=== PATIENT | female | born 1980 | race American Indian/Alaskan Native ===

== ENCOUNTER 2017-05-10 20:44 | Emergency (ER) | payer OTHER ==
[~2017-05-10] VITALS: Ht 170.2 cm; Wt 125.6 kg
== END 2017-05-10 21:45 | disposition home or self-care (01) ==
LOC: ED 20:44
DX: M25.522 Pain in left elbow (principal); J45.909 Unspecified asthma, uncomplicated; F17.200 Nicotine dependence, unspecified, uncomplicated; Z88.1 Allergy status to other antibiotic agents
CPT/HCPCS: 73080; 99283

== ENCOUNTER 2017-05-12 18:10 | Emergency (ER) | payer OTHER ==
[~2017-05-12] VITALS: Ht 170.2 cm; Wt 125.6 kg
[2017-05-12] MEDS ORDERED: NORCO 5-325 TA1 EACH PO (18:56)
== END 2017-05-12 19:12 | disposition home or self-care (01) ==
LOC: ED 18:10
DX: S40.011A Contusion of right shoulder, initial encounter (principal); J45.909 Unspecified asthma, uncomplicated; F17.200 Nicotine dependence, unspecified, uncomplicated; Z88.1 Allergy status to other antibiotic agents; V49.9XXA Car occupant (driver) (passenger) injured in unspecified traffic accident, initial encounter
CPT/HCPCS: 73030; 99283

== ENCOUNTER 2019-12-28 15:14 | Emergency (ER) | payer OTHER ==
[~2019-12-28] VITALS: Ht 170.2 cm; Wt 122.5 kg
--- OUTSIDE RECORDS SUMMARY | ~2019-12-28 | XMS | Clinical Summary ---
Demographics + + + | Address | [address] | | | [place] [address] | + + + | Home Phone | | + + + | Preferred Language | Unknown | + + + | Marital Status | Single | + + + | Anabaptist Affiliation | 1041 | + + + | Race | Unknown | + + + | Ethnic Group | Unknown | + + + Author + + + | Author | [facility] | | | and Roman | + + + | Organization | [facility] | | | and [...] Team Providers + +------+ + | Care Cash Controller Name | Role | Phone | + +------+ + | No, Physician | PCP | Unavailable | + +------+ + Allergies No Known Allergies Medications + + + +---------+------+------+-------+ | Medication | Sig | Dispensed | Refills | Star | End | Statu | | | | | | t | Date | s | | | | | | Date | | | + + + +---------+------+------+-------+ | triamcinolone | Apply two times | 453.6 g | 11 | 11/0 | | Activ | | (KENALOG) 0.1% | daily to effected | | | 5/20 | | e | | creamIndications: | areas with rash. | | | 19 | | | | Dermatitis, | Best applied to damp | | | | | | | unspecified | skin. Avoid the | | | | | | | | face, underarms and | | | | | | | | groin areas. | | | | | | + + + +---------+------+------+-------+ | Skin Protectants, | Apply two times | 454 g | 11 | 11/0 | | Activ | | Misc. (MINERIN) | daily to damp skin | | | 5/20 | | e | | CREAIndications: | of entire body | | | 19 | | | | Dermatitis, | surface. | | | | | | | unspecified | | | | | | | + + + +---------+------+------+-------+ | hydrocortisone | Apply two times | 60 g | 11 | 11/0 | | Activ | | butyrate (LOCOID) | daily to effected | | | 5/20 | | e | | 0.1 % | areas of face with | | | 19 | | | | CREAIndications: | rash. Best applied | | | | | | | Dermatitis, | to damp skin. | | | | | | | unspecified | | | | | | | + + + +---------+------+------+-------+ | cetirizine | Take 1 tablet by | 30 | 2 | 11/0 | | Activ | | (ZYRTEC) 10 mg | mouth Daily. | tablet | | 5/20 | | e | | tabletIndications: | | | | 19 | | | | Dermatitis, | | | | | | | | unspecified | | | | | | | + + + +---------+------+------+-------+ | clindamycin | Apply to a clean dry | 60 mL | 0 | 02/2 | | Activ | | (CLEOCIN T) 1 % | face two times | | | 6/20 | | e | | lotionIndications: | daily. | | | 20 | | | | Acne vulgaris | | | | | | | + + + +---------+------+------+-------+ | doxycycline | Take 1 tablet by | 60 | 5 | 02/2 | | Activ | | (ADOXA) 100 MG | mouth 2 times daily. | tablet | | 6/20 | | e | | tabletIndications: | | | | 20 | | | | Acne vulgaris | | | | | | | + + + +---------+------+------+-------+ Active Problems No known active problems Social History + +-------+ +--------+------+ | Tobacco [...] on file | | + + + + + + + | Job Start Date | Occupation | Industry | + + + + | Not on file | Not on file | Not on file | + + + + + + + + | Travel History | Travel Start | Travel End | + + + + + + | No recent travel history available. | + + Last Filed Vital Signs + + + [...] + + + + | Height | 170.2 cm (5' 7") | 05/25/2019 10:57 AM | | | | | PST | | + + + + + | Body Mass Index | 45.58 | 05/25/2019 10:57 AM | | | | | PST | | + + + + + Plan of Treatment +--------+---------+ + + + | Date | Type | Specialty | Care Team | Description | +--------+---------+ + + + | 01/10/ Office | Dermatology | Joanie Barrera | | | 2020 | Visit | | [address] | | | | | | [address] [address] | | | | | | [place] [address] | | | | | | [phone] | | | | | | | | +--------+---------+ + + + + + + + + | Health Maintenance | Due Date | Last Done | Comments | + + + + + | Vaccine: | | 01/07/2005 | | | Dtap/Tdap/Td (1 - | 1 | | | | Tdap) | | | | + + + + + | Cervical Cancer | | | | | Screening (Pap) | 0 | | | + + + + + | Vaccine: Influenza | Completed | 04/08/2019 | | + + + + + Results Not on filefrom Last 3 Months Additional Health Concerns + + + + | Infection | Noted Time | Resolved Time | + + + + | Methicillin-resistant Staphylococcus aureus | 05/27/2019 1:29 PM | | | | PST | | + + + + Insurance + +--------+ +--------+ +---------+--------+ | Payer | Benefi | Subscriber | Effect | Phone | Address | Type | | | t Plan | ID | rk | | | | | | / | | Dates | | | | | | Group | | | | | | + +--------+ +--------+ +---------+--------+ | [place]ID [place] | MEDICA | [id number] | 07/21/19 | [phone] | | Medica | | | [place] | | 19-Pre | 2 | | id | | | PLUS | | sent | | | | + +--------+ +--------+ +---------+--------+ | [facility] | IHS | [id number] | | | | Indemn | | SERVICE | YELLOW | | 019-Pr | | | ity | | | HAWK | | esent | | | | + +--------+ +--------+ +---------+--------+ + +--------+ +--------+ + + | Guarantor Name | Accoun | Relation to | Date | Phone | Billing Address | | | t Type | Patient | of | | | | | | | | | | + +--------+ +--------+ + + | Bertha Viveros D | Person | Self | [birth year] | [address] | | | al/Fam | | 1980 | [phone] | [place] [address] | | | [place] | | | 4 (Home) | | + +--------+ +--------+ + + Advance Directives + + + + + | Type | Date Recorded | Patient | Explanation | | | | Slitting Machine Feeder | | + + + + + | Power of | | | | | Timers Inspector | | | | + + + + + | Advance | | | | | Directive | | | | + + + + +
--- OUTSIDE RECORDS SUMMARY | ~2019-12-28 | XMS | Encounter Summary ---
Demographics + + + | Address | [address] | | | [place] [address] | + + + | Home Phone | | + + + | Preferred Language | Unknown | + + + | Marital Status | Single | + + + | Shinto Affiliation | 1041 | + + + | Race | Unknown | + + + | Ethnic Group | Unknown | + + + Author + + + | Author | [facility] | | | and Roman | + + + | Organization | [facility] | | | and [...] Team Providers + +------+ + | Care Hydraulic Oil Tool Operator Name | Role | Phone | + +------+ + | No, Physician | PCP | Unavailable | + +------+ + Reason for Visit +---------+ + | Reason | Comments | +---------+ + | Results | | +---------+ + Encounter Details +--------+ + + + + | Date | Type | Department | Care Team | Description | +--------+ + + + + | 05/28/ | Telephone | [facility] | Emily Crane | Results | | 2019 | | PLASTIC SURGERY AND | [address] | | | | | DERMATOLOGY [address] | [address] | | | | | [place] | [place] [address] | | | | | [place], [place] | [phone] | | | | | [address] | | | | | | [phone] | | | +--------+ + + + + Social History + +-------+ +--------+------+ | Tobacco Use | Types | Packs/Day | Years | Date | | | | | Used | | + +-------+ +--------+------+ | Never Assessed | | | | | + +-------+ +--------+------+ + + + | Sex Assigned at [...] recent travel history available. | + + documented as of this encounter Plan of Treatment +--------+---------+ + + + | Date | Type | Specialty | Care Team | Description | +--------+---------+ + + + | 01/10/ | Office | Dermatology | Joanie Barrera | | | 2020 | Visit | | [address] | | | | | | [address] | | | | | | [place] [address] | | | | | | [phone] | | | | | | | | +--------+---------+ + + + documented as of this encounter Visit Diagnoses Not on filedocumented in this encounter Additional Health Concerns + + + + | Infection | Noted Time | Resolved Time | + + + + | Methicillin-resistant Staphylococcus aureus | 05/27/2019 1:29 PM | | | | PST | | + + + + documented as of this encounter"
--- OUTSIDE RECORDS SUMMARY | ~2019-12-28 | XMS | Encounter Summary ---
Demographics + + + | Address | [address] | | | [place] [address] | + + + | Home Phone | | + + + | Preferred Language | Unknown | + + + | Marital Status | Single | + + + | Caodaism Affiliation | 1041 | + + + | Race | Unknown | + + + | Ethnic Group | Unknown | + + + Author + + + | Author | [facility] | | | and Roman | + + + | Organization | [facility] | | | and [...] Team Providers + +------+ + | Care Maintenance Clerk Name | Role | Phone | + [...] | | | | | dermatitis | CREEK | Dermatology | | | | | | HEALTH | [address] [place] [address] | | | | | | [place] | POINT | | | | | | [address] | [place], [place] | | | | | | [place] | [address] | | | | | | WAY | Phone: | | | | | | [place], | [phone] | | | | | | [place] | Fax: | | | | | | [address] | [phone] | | | | | | Phone: | | | | | | | [phone] | | | | | | | Fax: | | | | | | | [phone] | | +--------+--------+ + + + + Encounter Details +--------+---------+ + + + | Date | Type | Department | Care Team | Description | +--------+---------+ + + + | 09/15/ | Office | [facility] | Emily Crane | Acne vulgaris | | 2019 | Visit | PLASTIC SURGERY AND | [address] | (Primary Dx); | | | | DERMATOLOGY [address] | [address] | Dermatitis, | | | | [address] | [place] [address] | unspecified | | | | [place], [place] | [phone] | | | | | [address] | | | | | | [phone] | | | +--------+---------+ + + + [...] encounter Patient Instructions Patient Instructions Maggy Turner, Sawyer Cork Slabs - 09/15/2019 2:45 PM PSTFormattin g of this note might be different from [...] a.m. to 4 p.m. Date Last Reviewed: 07/21/201619990156-4774 [employer]. [address] [place] [address]. All [facility] ts reserved. This information is not intended as a substitute for professional medical care. Always follow your healthcare professional's instructions. documented in this encounter Progress Notes Emily Crane, ANTONIO - 09/15/2019 2:45 PM PST Subjective Patient [...] dermatitis versus atopic dermatitis with impetiginous areas I, Maggy Turner CMA, am scribing for, and in the presence of Emily ANDERSON. I, RICHARD Nelson DCNP, personally performed the services described in this documen tation, as scribed by Maggy Turner CMA, in my presence, and it is both accurate and com plete. documented i n this encounter Plan of Treatment +--------+---------+ + + + | Date | Type | Specialty | Care Team | Description | +--------+---------+ + + + | 01/10/ | Office | Dermatology | Joanie Barrera | | | 2019 | Visit | | [address] | | | | | | [address] | | | | | | [place] [address] | | | | | | [phone] | | | | | | | | +--------+---------+ + + + documented as of this encounter Visit Diagnoses + [...]
--- OUTSIDE RECORDS SUMMARY | ~2019-12-28 | XMS | Encounter Summary ---
Demographics + + + | Address | [address] | | | [place] [address] | + + + | Home Phone | | + + + | Preferred Language | Unknown | + + + | Marital Status | Single | + + + | Mosque Affiliation | 1041 | + + + | Race | Unknown | + + + | Ethnic Group | Unknown | + + + Author + + + | Author | [facility] | | | and Roman | + + + | Organization | [facility] | | | [...] Team Providers + +------+ + | Care Dynamiter Name | Role | Phone | + +------+ + PCP | Unavailable | + +------+ + Encounter Details +--------+ + + + + | Date | Type | Department | Care Team | Description | +--------+ + + + + | 11/11/ | Hospital | [facility] | Ollie Akbar MD | | | 1996 | Encounter | MED CTR GENERIC OP | [address] | | | | | CONV DEPT [address] | [address] [place] | | | | | [place], | [address] | | | | | [place] [address] | | | | | | [phone] | | | +--------+ + + + [...] 2020 | Visit | | [address]IO [address] | | | | | | [address] | | | | | | [place] [address] | | | | | | [phone] | | | | | | | | +--------+---------+ + + + documented as of this encounter Visit Diagnoses Not on filedocumented in this encounter"
--- OUTSIDE RECORDS SUMMARY | ~2019-12-28 | XMS | Encounter Summary ---
Demographics + + + | Address | [address] | | | [place] [address] | + + + | Home Phone | | + + + | Preferred Language | Unknown | + + + | Marital Status | Single | + + + | Advent Affiliation | 1041 | + + + | Race | Unknown | + + + | Ethnic Group | Unknown | + + + Author + + + | Author | [facility] | | | and Roman | + + + | Organization | [facility] | | | and [...] Team Providers + +------+ + | Care Surgical Appliances Salesperson Name | Role | Phone | + +------+ + | No, Physician | PCP | Unavailable | + +------+ + Reason for Visit +---------+ + | Reason | Comments | +---------+ + | Results | | +---------+ + Encounter Details +--------+ + + + + | Date | Type | Department | Care Team | Description | +--------+ + + + + | 06/01/ | Telephone | [facility] | Emily Crane | Results | | 2019 | | PLASTIC SURGERY AND | [address] | | | | | DERMATOLOGY [address] | [address] | | | | | [place] [address] | [place] [address] | | | | | [place], [place] | [phone] | | | | | [address] | | | | | | [phone] | | | +--------+ + + + [...] | | | | | | [place] [address] | | | | | | [phone] | | | | | | | [...]
--- OUTSIDE RECORDS SUMMARY | ~2019-12-28 | XMS | Encounter Summary ---
Demographics + + + | Address | [address] | | | [place] [address] | + + + | Home Phone | | + + + | Preferred Language | Unknown | + + + | Marital Status | Single | + + + | Yazidism Affiliation | 1041 | + + + | Race | Unknown | + + + | Ethnic Group | Unknown | + + + Author + + + | Author | [facility] | | | and Roman | + + + | Organization | [facility] | | | and [...] Team Providers + +------+ + | Care Paving Plant Operator Name | Role | Phone | + +------+ + | No, Physician | PCP | Unavailable | + +------+ + Encounter Details +--------+ + + + + | Date | Type | Department | Care Team | Description | +--------+ + + + + | 06/02/ | Telephone | [facility] | Emily Crane | | | 2018 | | PLASTIC SURGERY AND | [address] | | | | | DERMATOLOGY [address] | [address] | | | | | [address] | [place] [address] | | | | | [place], [place] | [phone] | | | | | [address] | | | | | | [phone] | | | +--------+ + + + [...] | | 2019 | Visit | | AN[address]IO [address]an [address] | | | | | | [address] | | | | | | [place] [address] | | | | | | [phone] | | | | | | | [...]
--- OUTSIDE RECORDS SUMMARY | ~2019-12-28 | XMS | Encounter Summary ---
Demographics + + + | Address | [address] | | | [place] [address] | + + + | Home Phone | | + + + | Preferred Language | Unknown | + + + | Marital Status | Single | + + + | Amish Affiliation | 1041 | + + + | Race | Unknown | + + + | Ethnic Group | Unknown | + + + Author + + + | Author | [facility] | | | and Roman | + + + | Organization | [facility] | | | [...] Team Providers + +------+ + | Care Watch Adjuster Name | Role | Phone | + +------+ + PCP | Unavailable | + +------+ + Encounter Details +--------+ + + + + | Date | Type | Department | Care Team | Description | +--------+ + + + + | 11/11/ | Hospital | [facility] | Ollie Akbar MD | | | 1996 | Encounter | MED CTR GENERIC OP | [address] | | | | | CONV DEPT [address] | [address] | | | | | [place], | [address] | | | | | [place] [address] | | | | | | [phone] | | | +--------+ + + + [...] 2020 | Visit | | ANTONIO [address]an [address] | | | | | | [address] | | | | | | [place] [address] | | | | | | [phone] | | | | | | | | +--------+---------+ + + + documented as of this encounter Visit Diagnoses Not on filedocumented in this encounter"
--- OUTSIDE RECORDS SUMMARY | ~2019-12-28 | XMS | Encounter Summary ---
Demographics + + + | Address | [address] | | | [place] [address] | + + + | Home Phone | | + + + | Preferred Language | Unknown | + + + | Marital Status | Single | + + + | Jew Affiliation | 1041 | + + + | Race | Unknown | + + + | Ethnic Group | Unknown | + + + Author + + + | Author | [facility] | | | and Roman | + + + | Organization | [facility] | | | [...] Providers + +------+ + | Care Surgical Garment Fitter Name | Role | Phone | + [...] + + | 06/01/ | Telephone | [facility] | Emily Crane | Results | | 2019 | | PLASTIC SURGERY AND | [address] | | | | | DERMATOLOGY [address] | [place] [address] | | | | | [place] [address] | [place] [address] | | | | | [place], [place] | [phone] | | | | | [address] | | | | | | [phone] | | | +--------+ + + + [...] | | | | | | [place] [address] | | | | | | [phone] | | | | | | | [...]
--- OUTSIDE RECORDS SUMMARY | ~2019-12-28 | XMS | Encounter Summary ---
Demographics + + + | Address | [address] | | | [place] [address] | + + + | Home Phone | | + + + | Preferred Language | Unknown | + + + | Marital Status | Single | + + + | Nondenominational Affiliation | 1041 | + + + [...] Team Providers + +------+ + | Care Typist Name | Role | Phone | + [...] + + | 05/28/ | Telephone | [facility] | Emily Crane | Results | | 2019 | | PLASTIC SURGERY AND | [address] | | | | | DERMATOLOGY [address] | [address] | | | | | [place] | [place] [address] | | | | | [place], [place] | [phone] | | | | | [address] | | | | | | [phone] | | | +--------+ + + + [...] | | | | | | [place] [address] | | | | | | [phone] | | | | | | | [...]
--- OUTSIDE RECORDS SUMMARY | ~2019-12-28 | XMS | Clinical Summary ---
Demographics + + + | Address | [address] | | | [place] [address] | + + + | Home Phone | | + + + | Preferred Language | Unknown | + + + | Marital Status | Single | + + + | Christian Affiliation | 1041 | + + + | Race | Unknown | + + + | Ethnic Group | Unknown | + + + Author + + + | Author | [facility] | | | and Roman | + + + | Organization | [facility] | | | and [...] Team Providers + +------+ + | Care Running Rigger Name | Role | Phone | + [...] | | | | | [place] [address] | | | | | | [phone] | | | | | | | [...] +---------+--------+ | MEDICAID [place] | MEDICA | [id number] | 07/21/19 | [phone] | | Medica | | | [place] | | 19-Pre | 2 | | id | | | PLUS | | sent | | | | + +--------+ +--------+ +---------+--------+ | [facility] | IHS | [id number] | | | | Indemn | | [...] Person | Self | [birth year] | | [address] | | | al/Fam | | 1980 | [phone] | [place] [address] | | | [place] | | | 4 (Home) | | + +--------+ +--------+ + + Advance Directives + + + + + | Type | Date Recorded | Patient | Explanation | | | | Vessel Builder | | + + + + + | Power of | | | | | Power Generation Engineer | | | | + + + + + | Advance | | | | | Directive | | | | + + + + +
--- OUTSIDE RECORDS SUMMARY | ~2019-12-28 | XMS | Encounter Summary ---
Demographics + + + | Address | [address] | | | [place] [address] | + + + | Home Phone | | + + + | Preferred Language | Unknown | + + + | Marital Status | Single | + + + | Rastafari Affiliation | 1041 | + + + | Race | Unknown | + + + | Ethnic Group | Unknown | + + + Author + + + | Author | [facility] | | | and Roman | + + + | Organization | [facility] | | | [...] Team Providers + +------+ + | Care Practicing Dermatologist Name | Role | Phone | + [...] | | | | | dermatitis | [facility] | Dermatology | | | | | | HEALTH | [address] [place] [address] | | | | | | [place] | POINT | | | | | | [address] | [place], [place] | | | | | | [place] | [address] | | | | | | WAY | Phone: | | | | | | [place], | [phone] | | | | | | [place] | Fax: | | | | | | [address] | [phone] | | | | | | Phone: | | | | | | | [phone] | | | | | | | Fax: | | | | | | | [phone] | | +--------+--------+ + + + + Encounter Details +--------+---------+ + + + | Date | Type | Department | Care Team | Description | +--------+---------+ + + + | 09/15/ | Office | [facility] | Emily Crane | Acne vulgaris | | 2019 | Visit | PLASTIC SURGERY AND | [address] | (Primary Dx); | | | | DERMATOLOGY [address] | [address] | Dermatitis, | | | | [address] | [place] [address] | unspecified | | | | [place], [place] | [phone] | | | | | [address] | | | | | | [phone] | | | +--------+---------+ + + + [...] encounter Patient Instructions Patient Instructions Maggy Turner, Flower Grader - 09/15/2019 2:45 PM PSTFormattin g of [...] a.m. to 4 p.m. Date Last Reviewed: 07/21/[id number] [employer]. [address] [place] [address]. All [facility] ts reserved. This information is not intended [...] [address] | | | | | | [place] [address] | | | | | | [phone] | | | | | | | [...]
--- OUTSIDE RECORDS SUMMARY | ~2019-12-28 | XMS | Encounter Summary ---
Demographics + + + | Address | [address] | | | [place] [address] | + + + | Home Phone | | + + + | Preferred Language | Unknown | + + + | Marital Status | Single | + + + | Shinto Affiliation | 1041 | + + + | Race | Unknown | + + + | Ethnic Group | Unknown | + + + Author + + + | Author | [facility] | | | and Roman | + + + | Organization | [facility] | | | [...] Team Providers + +------+ + | Care Media Technician Name | Role | Phone | + +------+ + | No, Physician | PCP | Unavailable | + +------+ + Reason for Visit +--------+ + | Reason | Comments | +--------+ + | Other | | +--------+ + Evaluate & Treat (Routine) +--------+--------+ + + + + | Status | Reason | Specialty | Diagnoses / | Referred By | Referred To | | | | | Procedures | Contact | Contact | +--------+--------+ + + + + | Closed | | Dermatology | Diagnoses | [facility] | [facility] | | | | | Dermatitis | [facility] | Dermatology | | | | | | HEALTH | [address] | | | | | | CENTER | POINT | | | | | | [address] | [place], [place] | | | | | | [place] | [address] | | | | | | WAY | Phone: | | | | | | [place], | [phone] | | | | | | [place] | Fax: | | | | | | [address] | [phone] | | | | | | Phone: | | | | | | | [phone] | | | | | | | Fax: | | | | | | | [phone] | | +--------+--------+ + + + + Encounter Details +--------+---------+ + + + | Date | Type | Department | Care Team | Description | +--------+---------+ + + + | 05/25/ | Office | [facility] | Emily Crane | Dermatitis, | | 2019 | Visit | PLASTIC SURGERY AND | [address] | unspecified (Primary | | | | DERMATOLOGY [address] | [address] | Dx) | | | | [address] | [place] [address] | | | | | [place], [place] | [phone] | | | | | [address] | | | | | | [phone] | | | +--------+---------+ + + + [...] + + + + | Weight | 117.9 kg (260 lb) | 05/25/2019 10:57 AM | | | | | PST | | + + + + + | Height | 170.2 cm (5' 7") | 05/25/2019 10:57 AM | | | | | PST | | + + + + + | Body Mass Index | 40.72 | 05/25/2019 10:57 AM | | | | | PST | | + + + + + documented in this encounter Patient Instructions Patient Instructions Teresita Olivares Hr Payroll Coordinator - 05/25/2019 11:15 AM PSTAryarier Annabel re: Soap: Dove sensitive skin Lotion:(Aveeno, Vanicream, cetaphil or cerave) as long as no color or fragrance. Best appli ed to WET skin. If second layer is necessary (Vaseline petroleum jelly) or the like Itch: 1st generation antihistamine (atarax or Benadryl) as needed for breakthrough itch. 2nd generation antihistamine: (Cetirizine or loratadine) every night Avoid possible contact irritants: Change due to possible contact irritants: No color or fragrance Laundry Detergent: Free and Gentle (ALL/Tide) Fabric Softener: Free and Gentle (Downy) Dryer Sheets: Free and Gentle (Bounce) documented in this encounter Progress Notes Emily Crane Patricia, ANTONIO - 05/25/2019 11:15 AM PST Subjective Patient ID: Bertha Viveros is a 38 y.o. female. New patient is here today for a rash located on her face,neck and back it has been ongoing since November. The rash started while she was incarcerated patient feels it was due to unclean s urroundings. She states that there could have been a lot of triggering factors. She states t hat the rash is itchy and it hurley. She has tried treatments with prescribed medications siomara t she is unsure the names of. Overall her rash has gotten worse and has not seen any improve ments. The following elements of the patient's history were reviewed and updated as appropriate. T hey are available elsewhere in the patient record. allergies, current medications, past fam clementina history, past medical history, past social history, past surgical history and problem li st Review of Systems Constitutional: Negative. Skin: Negative. skin All other systems reviewed and are negative. Objective Ht 1.702 m (5' 7") | Wt 117.9 kg (260 lb) | BMI 40.72 kg/m Physical Exam Constitutional: She is oriented to person, place, and time. She appears well-developed and well-nourished. Eyes: Pupils are equal, round, and reactive to light. Neurological: She is alert and oriented to person, place, and time. Skin: Skin is warm and dry. Lichenified erythematous vesicular scaling dermatitis with multiple areas of excoriation lo cated on the face, posterior neck and mid back. Widespread dry, non inflamed, intact skin. Psychiatric: Her behavior is normal. Assessment /Plan Assessment Dermatitis Unspecified versus contact dermatitis versus atopic dermatitis with i mpetiginous areas: Patient was advised to change her barrier care and use medications prescr ibed. She will follow up in 8 weeks. Bertha was seen today for other. Diagnoses and all orders for this visit: Dermatitis, unspecified Comments: contact dermatitis versus atopic dermatitis with impetiginous areas Orders: - triamcinolone (KENALOG) 0.1% cream; Apply two times daily to effected areas with rash . Best applied to damp skin. Avoid the face, underarms and groin areas. - Skin Protectants, Misc. (MINERIN) CREA; Apply two times daily to damp skin of entire body surface. - hydrocortisone butyrate (LOCOID) 0.1 % CREA; Apply two times daily to effected areas of face with rash. Best applied to damp skin. - doxycycline (ADOXA) 100 MG tablet; Take 1 tablet by mouth 2 times daily. - Culture, Wound, Superficial - cetirizine (ZYRTEC) 10 mg tablet; Take 1 tablet by mouth Daily. I Teresita Olivares CMA am scribing in the presence of; Emily ANDERSON. I, RICHARD Nelson, MNOICA, personally performed the services described in this documen tation, as scribed by Teresita Olivares CMA, in my presence, and it is both accurate and complete . documented jena juarez this encounter Plan of Treatment +--------+---------+ + + + | Date | Type | Specialty | Care Team | Description | +--------+---------+ + + + | 01/10/ | Office | Dermatology | [facility] | | | 2019 | Visit | | ANTONIO [address] | | | | | | [address] | | | | | | [place] [address] | | | | | | [phone] | | | | | | | | +--------+---------+ + + + documented as of this encounter Procedures + +--------+ + + + | Procedure Name | Priori | Date/Time | Associated Diagnosis | Comments | | | ty | | | | + +--------+ + + + | CULTURE, WOUND, | Routin | 05/25/2019 | Dermatitis, | Results for this | | SUPERFICIAL | e | 11:13 AM | unspecified | procedure are in the | | | | PST | | results section. | + +--------+ + + + | PATHOLOGY - EXTERNAL | | 03/29/2019 | | Results for this | | SCAN | | 12:00 AM | | procedure are in the | | | | PDT | | results section. | + +--------+ + + + documented in this encounter Results Culture, Wound, Superficial (05/25/2019 11:13 AM PST) + + + + + + | Component | Value | Ref Range | Performed | Pathologist | | | | | At | Signature | + + + + + + | RESULT | 1+METHICILLIN RESISTANT | | REFERENCE | | | | S[facility] (MRSA) (A) | | LAB | | | | (A) | | [facility] | | | | | | LABORATORY | | + + + + + + + + | Specimen | + + | Body Fluid - Entire | | skin (body | | structure) | + + + + +--------+ + | Organism | Antibiotic | Method | Susceptibility | + + +--------+ + | Staphylococcus | Clindamycin | CHRISTINE | SUSCEPTIBLE: | | aureus,Methicillin | | | Sensitive | | resistant (MRSA) | | | | + + +--------+ + | Staphylococcus | Erythromycin | CHRISTINE | RESISTANT: | | aureus,Methicillin | | | Resistant | | resistant (MRSA) | | | | + + +--------+ + | Staphylococcus | Gentamicin | CHRISTINE | SUSCEPTIBLE: | | aureus,Methicillin | | | Sensitive | | resistant (MRSA) | | | | + + +--------+ + | Staphylococcus | Levofloxacin | CHRISTINE | RESISTANT: | | aureus,Methicillin | | | Resistant | | resistant (MRSA) | | | | + + +--------+ + | Staphylococcus | Moxifloxacin | CHRISTINE | INTERMEDIATE: | | aureus,Methicillin | | | Intermediate | | resistant (MRSA) | | | | + + +--------+ + | Staphylococcus | Oxacillin | CHRISTINE | RESISTANT: | | aureus,Methicillin | | | Resistant | | resistant (MRSA) | | | | + + +--------+ + | Staphylococcus | Tetracycline | CHRISTINE | SUSCEPTIBLE: | | aureus,Methicillin | | | Sensitive | | resistant (MRSA) | | | | + + +--------+ + | Staphylococcus | Trimethoprim + | CHRISTINE | SUSCEPTIBLE: | | aureus,Methicillin | Sulfamethoxazole | | Sensitive | | resistant (MRSA) | | | | + + +--------+ + | Staphylococcus | Vancomycin | CHRISTINE | SUSCEPTIBLE: | | aureus,Methicillin | | | Sensitive | | resistant (MRSA) | | | | + + +--------+ + +---+ + | | Comment: Testing | | | performed at [facility], | | | [address] | | | [place], [place] | | | [address] | +---+ + + + + + + | Performing | Address | City/State/Zipcode | Phone Number | | Organization | | | | + + + + + | REFERENCE LAB | [address] | [place] | [phone] | | [facility] | Bl[address] | [address] | | | LABORATORY | | | | + + + + + | REFERENCE LAB | [address] | [place] | | | [facility] | Blvd[address] | [address] | | | LABORATORY | | | | + + + + + PATHOLOGY - EXTERNAL SCAN (03/29/2019 12:00 AM PDT) + + + | Narrative | Performed At | + + + | Ordered by an | | | unspecified provider. | | + + + documented in this encounter Visit Diagnoses + + | Diagnosis | + + | Dermatitis, unspecified - Primary | + + documented in this encounter
--- OUTSIDE RECORDS SUMMARY | ~2019-12-28 | XMS | Encounter Summary ---
Demographics + + + | Address | [address] | | | [place] [address] | + + + | Home Phone | | + + + | Preferred Language | Unknown | + + + | Marital Status | Single | + + + | Mosque Affiliation | 1041 | + + + | Race | Unknown | + + + | Ethnic Group | Unknown | + + + Author + + + | Author | [facility] | | | and Roman | + + + | Organization | [facility] | | [...] Team Providers + +------+ + | Care Instructor Decorating Name | Role | Phone | + +------+ + | No, Physician | PCP | Unavailable | + +------+ + Encounter Details +--------+ + + + + | Date | Type | Department | Care Team | Description | +--------+ + + + + | 06/02/ | Telephone | [facility] | Emily Crane | | | 2018 | | PLASTIC SURGERY AND | [address]TONIO [address] | | | | | DERMATOLOGY [address] | [address] | | | | | [address] | [place] [address] | | | | | [place], [place] | [phone] | | | | | [address] | | | | | | [phone] | | | +--------+ + + + [...] 2019 | Visit | | ANTONIO [address]an [address] | | | | | | [address] | | | | | | [place] [address] | | | | | | [phone] | | | | | | | [...]
--- OUTSIDE RECORDS SUMMARY | ~2019-12-28 | XMS | Encounter Summary ---
Demographics + + + | Address | [address] | | | [place] [address] | + + + | Home Phone | | + + + | Preferred Language | Unknown | + + + | Marital Status | Single | + + + | Jain Affiliation | 1041 | + + + | Race | Unknown | + + + | Ethnic Group | Unknown | + + + Author + + + | Author | [facility] | | | and Roman | + + + | Organization | [facility] | | [...] Team Providers + +------+ + | Care Missile Facilities Repairer Name | Role | Phone | + [...] | | | | | Dermatitis | [facility] | Dermatology | | | | | | HEALTH | [address] | | | | | | CENTER | POINT | | | | | | [address] | [place], [place] | | | | | | [place] | [address] | | | | | | WAY | Phone: | | | | | | [place], | [phone] | | | | | | [place] | Fax: | | | | | | [address] | [phone] | | | | | | Phone: | | | | | | | [phone] | | | | | | | Fax: | | | | | | | [phone] | | +--------+--------+ + + + + Encounter Details +--------+---------+ + + + | Date | Type | Department | Care Team | Description | +--------+---------+ + + + | 05/25/ | Office | [facility] | Emily Crane | Dermatitis, | | 2019 | Visit | PLASTIC SURGERY AND | [address] | unspecified (Primary | | | | DERMATOLOGY [address] | Dx) | | | | [address] | [place] [address] | | | | | [place], [place] | [phone] | | | | | [address] | | | | | | [phone] | | | +--------+---------+ + + + [...] encounter Patient Instructions Patient Instructions Teresita Olivares Radio Officer - 05/25/2019 11:15 AM PSTAryarier Annabel re: [...] presence of; Emily ANDERSON. I, RICHARD Nelson, MONICA, personally performed the services described in this documen tation, as scribed by Teresita Olivares CMA, in my presence, and it is both accurate and complete . documented jena juarez this encounter Plan of Treatment +--------+---------+ + + + | Date | Type | Specialty | Care Team | Description | +--------+---------+ + + + | 01/10/ | Office | Dermatology | [facility] | | | 2019 | Visit | | ANTONIO Galan [address] | | | | | | [address] | | | | | | [place] [address] | | | | | | [phone] | | | | | | | [...] Comment: Testing | | | performed at [facility], | | | [address] | | | [place], [place] | | | [address] | +---+ + + + + + + | Performing | Address | City/State/Zipcode | Phone Number | | Organization | | | | + + + + + | REFERENCE LAB | [address] | [place] | [phone] | | [facility] | Bl[address] | [address] | | | LABORATORY | | | | + + + + + | REFERENCE LAB | [address] | [place] | | | [facility] | Blvd[address] | [address] | | | LABORATORY | | | [...]
[~2019-12-28 15:14] MED LIST: NORCO 5-325 TA1 EACH PO
[2019-12-28] MEDS ORDERED: BENADRYL ALLERG25 MG PO (15:36)
== END 2019-12-28 16:40 | disposition home or self-care (01) ==
LOC: ED 15:14
DX: M25.462 Effusion, left knee (principal); J45.909 Unspecified asthma, uncomplicated; F41.9 Anxiety disorder, unspecified; I10 Essential (primary) hypertension; Z87.891 Personal history of nicotine dependence; Z88.1 Allergy status to other antibiotic agents; Z79.899 Other long term (current) drug therapy
CPT/HCPCS: 99283

== ENCOUNTER 2020-02-28 15:11 | Emergency (ER) | payer OTHER ==
[~2020-02-28] VITALS: Ht 172.7 cm; Wt 122.9 kg
--- OUTSIDE RECORDS SUMMARY | ~2020-02-28 | XMS | Encounter Summary ---
Demographics + + + | Address | [address] | | | [place] [address] | + + + | Home Phone | | + + + | Preferred Language | Unknown | + + + | Marital Status | Single | + + + | Moravian Affiliation | 1041 | + + + | Race | Unknown | + + + | Ethnic Group | Unknown | + + + Author + + + | Author | [facility] | | | and Roman | + + + | Organization | [facility] | | | and [place] | + + + | Address | Unknown | + + + | Phone | Unavailable | + + + Support + + +---------+ + | Name | Relationship | Address | Phone | + + +---------+ + | Alex Rodriguez/Danielle Rodriguez | ECON | Unknown | | | [place] | | | | + + +---------+ + Care Team Providers + +------+ + | Care Opal Polisher Name | Role | Phone | + +------+ + | No, Physician | PCP | Unavailable | + +------+ + Reason for Visit +--------+ + | Reason | Comments | +--------+ + | Rash | Located on the face, redness and dry, patient states it feels | | | very itchy. patient has used Triamcinolone cream but it has not | | | work. | +--------+ + Evaluate & Treat (Routine) +--------+--------+ + + + + | Status | Reason | Specialty | Diagnoses / | Referred By | Referred To | | | | | Procedures | Contact | Contact | +--------+--------+ + + + + | Closed | | Dermatology | Diagnoses | [facility] | | | | | dermatitis | [place] | Dermatology | | | | | | HEALTH | [address] [place] [address] | | | | | | [place] | POINT | | | | | | [address] | [place], [place] | | | | | | [place] | [address] | | | | | | WAY | Phone: | | | | | | [place], | [phone] | | | | | | [place] | Fax: | | | | | | [address] | [phone] | | | | | | Phone: | | | | | | | [phone] | | | | | | | Fax: | | | | | | | [phone] | | +--------+--------+ + + + + Encounter Details +--------+---------+ + + + | Date | Type | Department | Care Team | Description | +--------+---------+ + + + | 09/15/ | Office | [facility] | Emily Crane | Acne vulgaris | | 2019 | Visit | PLASTIC SURGERY AND | [address] | (Primary Dx); | | | | DERMATOLOGY [address] | [address] | Dermatitis, | | | | [address] | [place] [address] | unspecified | | | | [place], [place] | [phone] | | | | | [address] | | | | | | [phone] | | | +--------+---------+ + + + Social History + +-------+ +--------+------+ | Tobacco Use | Types | Packs/Day | Years | Date | | | | | Used | | + +-------+ +--------+------+ | Never Smoker | | | | | + +-------+ +--------+------+ + +---+---+---+ | Smokeless Tobacco: | | | | | Never Used | | | | + +---+---+---+ + + +---------+ + | Alcohol Use | Drinks/Week | oz/Week | Comments | + + +---------+ + | Not Currently | | | | + + +---------+ + + + + | Sex Assigned at | Date Recorded | | | | + + + | Not on file | | + + + documented as of this encounter Last Filed Vital Signs + + + + + | Vital Sign | Reading | Time Taken | Comments | + + + + + | Blood Pressure | - | - | | + + + + + | Pulse | - | - | | + + + + + | Temperature | - | - | | + + + + + | Respiratory Rate | - | - | | + + + + + | Oxygen Saturation | - | - | | + + + + + | Inhaled Oxygen | - | - | | | Concentration | | | | + + + + + | Weight | 132 kg (291 lb) | 09/15/2019 2:58 PM | | | | | PST | | + + + + + | Height | - | - | | + + + + + | Body Mass Index | 45.58 | 05/25/2019 10:57 AM | | | | | PST | | + + + + + documented in this encounter Patient Instructions Patient Instructions Maggy Turner, Airline Pilot - 09/15/2019 2:45 PM PSTFormcraolina platt of this note might be different from the original. Preventing Skin Cancer Use sunscreen of SPF 30 or greater. Apply liberally. Relaxing in the sun may feel good, but it isn t good for your skin. In fact, being expose d to the sun s harmful rays is a major cause of skin cancer. This is a serious disease siomara t can be life-threatening. People of all ages and backgrounds are at risk. But in most cases , skin cancer can be prevented. Your role in prevention You can act today to help prevent skin cancer. Start by avoiding the sun s UV (ultraviole t) rays. And don t use tanning beds. These are no safer than the sun. Taking these steps c an help keep you from getting skin cancer. It can also help prevent wrinkles and otheragin g effects caused by the sun. Make sure your children also follow these safeguards. Now is th e time to start taking preventive steps against skin cancer. When you are outdoors Protect your skin when you go outdoors during the day. Take precautions whenever you go out to eat, run errands by car or on foot, or do any outdoor activity. There isn t just one e asy way to protect your skin. It s best to follow all of these steps: Wear tightly woven clothing that covers your skin. Put on a wide-brimmed hat to protect your face, ears, and scalp. Watch the clock. Try to avoid the sun between 10 a.m. and 4 p.m., when it is strongest. Head for the shade or create your own. Use an umbrella when sitting or strolling. Know that the sun s rays can reflect off sand, water, and snow. This can harm your ski n. Take extra care when you are near reflective surfaces. Keep in mind that even when the weather is hazy or cloudy, your skin can be exposed to s ketan UV rays. Shield your skin with sunscreen. Also apply sunscreen to your children s skin. Tips for using sunscreen To help prevent skin cancer, choose the right sunscreen and use it correctly. Try the follo wing tips: Choose a sunscreen that has a sun protection factor (SPF) of at least 30. Also choose a sunscreen labeled broad spectrum. This will shield you from both UVA and UVB (ultravio let A and B) rays. If one brand irritates your skin, try another, particularly ones without fragrance. Use a water-resistant sunscreen if you swim or sweat. Use at least an ounce of sunscreento cover exposed areas. This is enough to fill a leo t glass. You might need to adjust the amount depending on your body size. Apply the sunscreen to dry skin about 15 minutes before going outdoors. This gives it ti me to be absorbed. Reapply sunscreen every2 hours. If you re active, do this more often. Cover any sun-exposed skin, from your face to your feet. Don t forget your ears and yo ur lips. Know that while sunscreen helps protect you, it isn t enough. Sunscreens extend the le ngth of time you can be outdoors before your skin begins to guillermo, but they don't give you total protection. Using sunscreen doesn't mean you can stay out in the sun indefinitely. Dam age to the skin cells is still occurring. You should also wear protective clothing. And try to stay out of the sun as much as you can, especially from 10 a.m. to 4 p.m. Date Last Reviewed: 07/21/201619994992-3846 [employer]. [address] [place] [address], [place] [id number]. All righ ts reserved. This information is not intended as a substitute for professional medical care. Always follow your healthcare professional's instructions. documented in this encounter Progress Notes Emily Crane ARNP - 09/15/2019 2:45 PM PST Subjective Patient ID: Bertha Viveros is a 39 y.o. female. Established patient is here to follow up on atopic dermatitis/contact dermatitis located th roughout the face, neck and back, at her last visit she was prescribed triamcinolone (for th e body), hydrocortisone (for the face), doxycycline twice daily ( due to her bacterial cultu re coming back positive for MRSA), Zyrtec and was given information about proper barrier car e. Since then she states that she has been using all the medications as prescribed and it french s helped her rash hs improved as well as her cystic acne. The following elements of the patient's history were reviewed and updated as appropriate. T hey are available elsewhere in the patient record. allergies, current medications, past fam clementina history, past medical history, past social history, past surgical history and problem li st Review of Systems Constitutional: Negative. Skin: Atopic dermatitis All other systems reviewed and are negative. Objective Wt 132 kg (291 lb) | BMI 45.58 kg/m Physical Exam Constitutional: Appearance: Normal appearance. Eyes: Pupils: Pupils are equal, round, and reactive to light. Skin: Comments: Xerotic skin located throughout the face, neck and back. Open and closed comedones, cysts, and erythematous papules located on the face. Scarring is severe. Neurological: Mental Status: She is alert and oriented to person, place, and time. Psychiatric: Mood and Affect: Mood normal. Behavior: Behavior normal. Assessment /Plan Assessment atopic dermatitis VS contact dermatitis -Pt will continue taking Zyrtec daily -Pt will continue topical hydrocortisone for the face and triamcinolone for the body as wel l as proper barrier care -Pt will also continue doxycycline 100 mg twice daily. Assessment acne. Discussed the etiology, pathophysiology, and hereditary factors that may b e associated with acne. Discussed need to minimize scarring by treating early and preventi ng outbreaks. Explained that acne is multi-faceted, with inflammation, oil production, and t he presence bacteria called Propionibacterium acnes (P. Acnes). The increase of oil producti on related to hormones and puberty. Treatment decreases inflammation of the skin, minimizin g exposure to acne vulgaris bacteria, and decreasing oil production. Plan is to start using oral doxycycline 100 mg twice daily, topical clindamycin lotion in the morning. Applying topical medications to clean dry skin in a thin even coat. We discusse d starting gradually and working up to nightly due to excessive dryness and irritation. We discussed using a SPF of 30 or higher daily to avoid sun damage. I reviewed treatment cours e, expected outcome, and potential side effects. Written acne handout also given. -Pt was informed that due to the dryness and sensitivity for her skin, a retinoid is not th e right treatment for her at this time. Bertha was seen today for rash. Diagnoses and all orders for this visit: Acne vulgaris - clindamycin (CLEOCIN T) 1 % lotion; Apply to a clean dry face two times daily. - doxycycline (ADOXA) 100 MG tablet; Take 1 tablet by mouth 2 times daily. Dermatitis, unspecified Comments: contact dermatitis versus atopic dermatitis with impetiginous areas IMaggy CMA, am scribing for, and in the presence of Emily ANDERSON. I, RICHARD Nelson DCNP, personally performed the services described in this documen tation, as scribed by Maggy Turner CMA, in my presence, and it is both accurate and com plete. documented i n this encounter Plan of Treatment Not on filedocumented as of this encounter Visit Diagnoses + + | Diagnosis | + + | Acne vulgaris - Primary Other acne | + + | Dermatitis, unspecified | + + documented in this encounter Additional Health Concerns + + + + + | Infection | Onset Date | Last Indicated | Resolved Time | + + + + + | Methicillin-resistan | 05/27/2019 | 05/27/2019 | | | t Staphylococcus | | | | | aureus | | | | + + + + + documented as of this encounter"
--- OUTSIDE RECORDS SUMMARY | ~2020-02-28 | XMS | Encounter Summary ---
Demographics + + + | Address | [address] | | | [place] [address] | + + + | Home Phone | | + + + | Preferred Language | Unknown | + + + | Marital Status | Single | + + + | Taoism Affiliation | 1041 | + + + [...] Team Providers + +------+ + | Care Navy Senior Officer Name | Role | Phone | + +------+ + | No, Physician | PCP | Unavailable | + +------+ + Encounter Details +--------+ + + + + | Date | Type | Department | Care Team | Description | +--------+ + + + + | 06/02/ | Telephone | [facility] | Emily Crane | | | 2018 | | PLASTIC SURGERY AND | [address] | | | | | DERMATOLOGY [address] | [address] | | | | | [address] | [place] [address] | | | | | [place], [place] | [phone] | | | | | [address] | | | | | | [phone] | | | +--------+ + + + [...] + + documented as of this encounter Miscellaneous Notes Telephone Encounter - Teresita Olivares Hand Filer Balance Wheel - 06/02/2019 11:16 AM PSTinformed patient of her results she will continue the antibiotic she is on and I made her a 4 week fo llow up Telephone Encounter - Teresita Olivares Hand Filer Balance Wheel - 06/02/2019 11:12 AM PST----- Mess age from ANTONIO Ricci sent at 05/27/2019 2:14 PM PST ----- Please notify patient that her culture was positive and found to be a resistant form of sta ph aureus. But the antibiotic she was placed on at the office visit was the correct one. Ple ase continue all skin care recommendations as made in the office. Patient will follow up in 4 weeks. Please schedule. Thank you, ANOTNIO Ricci 05/27/2019 14:14 docume nted in this encounter Plan of Treatment Not on filedocumented as of this encounter Visit Diagnoses Not [...]
--- OUTSIDE RECORDS SUMMARY | ~2020-02-28 | XMS | Clinical Summary ---
Demographics + + + | Address | [address] | | | [place] [address] | + + + | Home Phone | | + + + | Preferred Language | Unknown | + + + | Marital Status | Single | + + + | Mu-Ism Affiliation | 1041 | + + + | Race | Unknown | + + + | Ethnic Group | Unknown | + + + Author + + + | Author | [facility] | | | and Roman | + + + | Organization | [facility] | | | [...] Team Providers + +------+ + | Care Parliamentary Archivist Name | Role | Phone | + [...] on file | | + + + Last Filed Vital Signs + [...] + + + + Plan of Treatment + + + + + | Health Maintenance | Due Date | Last | Comments | | | | Done | | + + + + + | Hepatitis C | | | | | Screening | 0 | | | + + + + + | Vaccine: | | 01/08/20 | | | Dtap/Tdap/Td (1 - | 9 | 05 | | | Tdap) | | | | + + + + + | Cervical Cancer | | | | | Screening (Pap) | 0 | | | + + + + + | Vaccine: Influenza | | 04/08/20 | | | (#1) | 0 | 19 | | + + + + + [...] | | + + + + + Insurance + +--------+ [...] +---------+--------+ | [place] | MEDICA | [id number] | 07/21/19 | [phone] | | Medica | | | [place] | | 19-Pre | 2 | | id | | | PLUS | | sent | | | | + +--------+ +--------+ +---------+--------+ | [facility] | IHS | [id number] | | | | Indemn | | [...] Person | Self | [birth year] | [address] | | | al/Fam | | 1980 | [phone] | [place] [address] | | | clementina | | | 4 (Home) | | + +--------+ +--------+ + + Advance Directives + + + + + | Type | Date Recorded | Patient | Explanation | | | | Auto Service Writer | | + + + + + | Power of | | | | | Parent Educator | | | | + + + + + | Advance | | | | | Directive | | | | + + + + +
--- OUTSIDE RECORDS SUMMARY | ~2020-02-28 | XMS | Encounter Summary ---
Demographics + + + | Address | [address] | | | [place] [address] | + + + | Home Phone | | + + + | Preferred Language | Unknown | + + + | Marital Status | Single | + + + | Scientology Affiliation | 1041 | + + + | Race | Unknown | + + + | Ethnic Group | Unknown | + + + Author + + + | Author | [facility] | | | and Roman | + + + | Organization | [facility] | | | and [...] Team Providers + +------+ + | Care Rehab/Pre Vocational Counselor Name | Role | Phone | + +------+ + | No, Physician | PCP | Unavailable | + +------+ + Reason for Visit +---------+--------+ + | Reason | Onset | Comments | | | Date | | +---------+--------+ + | Results | 05/28/ | | | | 2019 | | +---------+--------+ + Encounter Details +--------+ + + + + | Date | Type | Department | Care Team | Description | +--------+ + + + + | 05/28/ | Telephone | [facility] | Emily Crane | Results | | 2019 | | PLASTIC SURGERY AND | [address] | | | | | DERMATOLOGY [address] | [address] | | | | | [address] | [place] [address] | | | | | [place], [place] | [phone] | | | | | [address] | | | | | | [phone] | | | +--------+ + + + [...] this encounter Miscellaneous Notes Telephone Encounter - Nandini Bernardo Boiling House Oiler - 06/02/2019 11:37 AM PSTI have att empted without success to contact this patient by phone to I left a message on answering mac shelby requesting Pt to call back regarding results. elepho ne Encounter - Nandini Bernardo Medical Assistant - 06/02/2019 11:37 AM PST Results Gaye Santos routed conversation to Dermatology/Plastic Surgery Clinical Staff Pool 21 h ours ago (2:17 PM) Gaye Santos 21 hours ago (2:17 PM) Pt returning call for results Documentation Bertha Viveros [phone] Gaye Santos 21 hours ago (2:16 PM) Encounter Messages No messages in this encounter elepho ne Encounter - Christina Isbell CMA - 05/28/2019 8:59 AM PSTI called pt but she was not in. LM with mom Danielle asking for pt to call us back. Office number left. Christina TURCIOS/BAKARI Clinical Resource Team P STTelephone Encounter - Christina Isbell CMA - 05/28/2019 8:59 AM PST----- Message from ANTONIO Reyes sent at 05/27/2019 14:14 PST ----- Please notify patient that her culture was positive and found to be a resistant form of sta ph aureus. But the antibiotic she was placed on at the office visit was the correct one. Ple ase continue all skin care recommendations as made in the office. Patient will follow up in 4 weeks. Please schedule. Thank you, ANTONIO Ricci 05/27/2019 14:14 documented in this e ncounter Plan of Treatment Not on filedocumented as [...]
--- OUTSIDE RECORDS SUMMARY | ~2020-02-28 | XMS | Encounter Summary ---
Demographics + + + | Address | [address] | | | [place] [address] | + + + | Home Phone | | + + + | Preferred Language | Unknown | + + + | Marital Status | Single | + + + | Spiritism Affiliation | 1041 | + + + | Race | Unknown | + + + | Ethnic Group | Unknown | + + + Author + + + | Author | [facility] | | | and Roman | + + + | Organization | [facility] | | [...] Team Providers + +------+ + | Care Powdered Metal Supervisor Name | Role | Phone | + +------+ + PCP | Unavailable | + +------+ + Encounter Details +--------+ + + + + | Date | Type | Department | Care Team | Description | +--------+ + + + + | 11/11/ | Hospital | [facility] | Ollie Akbar MD | | | 1996 | Encounter | MED CTR GENERIC OP | [address] | | | | | CONV DEPT [address] | [address] [place] [address] | | | | | [place], | [address] | | | | | [place] [address] | | | | | | [phone] | | | +--------+ + + + [...] as of this encounter Plan of Treatment Not on filedocumented as of this encounter Visit Diagnoses Not on filedocumented in this encounter"
--- OUTSIDE RECORDS SUMMARY | ~2020-02-28 | XMS | Encounter Summary ---
Demographics + + + | Address | [address] | | | [place] [address] | + + + | Home Phone | | + + + | Preferred Language | Unknown | + + + | Marital Status | Single | + + + | Buddhism Affiliation | 1041 | + + + | Race | Unknown | + + + | Ethnic Group | Unknown | + + + Author + + + | Author | [facility] | | | and Roman | + + + | Organization | [facility] | | | [...] Providers + +------+ + | Care Maintenance Helper Utility Engineer Name | Role | Phone | + [...] | | | | | Dermatitis | [facility] | Dermatology | | | | | | HEALTH | [address] | | | | | | [address] | POINT | | | | | | [address] | [place], [place] | | | | | | [place] | [address] | | | | | | WAY | Phone: | | | | | | [place], | [phone] | | | | | | [place] | Fax: | | | | | | [address] | [phone] | | | | | | Phone: | | | | | | | [phone] | | | | | | | Fax: | | | | | | | [phone] | | +--------+--------+ + + + + Encounter Details +--------+---------+ + + + | Date | Type | Department | Care Team | Description | +--------+---------+ + + + | 05/25/ | Office | [facility] | Emily Crane | Dermatitis, | | 2019 | Visit | PLASTIC SURGERY AND | [address] | unspecified (Primary | | | | DERMATOLOGY [address] | [address] | Dx) | | | | [address] | [place] [address] | | | | | [place], [place] | [phone] | | | | | [address] | | | | | | [phone] | | | +--------+---------+ + + + [...] this encounter Patient Instructions Patient Instructions Teresita Olivares, Speech And Hearing Clinic Director - 05/25/2019 11:15 AM PSTNils Jin re: Soap: Dove sensitive skin Lotion:(Aveeno, Vanicream, [...] encounter Progress Notes Emily Crane ARNP - 05/25/2019 11:15 AM PST Subjective Patient [...] the presence of; Emily ANDERSON. I, RICHARD Nelson DCNP, personally performed the services described in this documen tation, as scribed by Teresita Olivares CMA, in my presence, and it is both accurate and complete . documented i n this encounter Plan of Treatment Not on filedocumented as of this encounter Procedures + +--------+ [...] +--------+ + | Staphylococcus | Gentamicin | CHRSITINE | SUSCEPTIBLE: | | aureus,Methicillin | | [...] Comment: Testing | | | performed at [facility], | | | [address] | | | [place] | | | [address] | +---+ + + + + + + | Performing | Address | City/State/Zipcode | Phone Number | | Organization | | | | + + + + + | REFERENCE LAB | [address] [place] [address] | [place], [place] | [phone] | | [facility] | [address] | [address] | | | LABORATORY | | | | + + + + + | REFERENCE LAB | [address] [place] [address] | [place], [place] | | | [facility] | Blvd. | [address] | | | LABORATORY | | | [...]
--- OUTSIDE RECORDS SUMMARY | ~2020-02-28 | XMS | Encounter Summary ---
Demographics + + + | Address | [address] | | | [place] [address] | + + + | Home Phone | | + + + | Preferred Language | Unknown | + + + | Marital Status | Single | + + + | Methodist Affiliation | 1041 | + + + [...] Team Providers + +------+ + | Care Asbestos Remover Name | Role | Phone | + +------+ + | No, Physician | PCP | Unavailable | + +------+ + Reason for Visit +---------+--------+ + | Reason | Onset | Comments | | | Date | | +---------+--------+ + | Results | 06/01/ | | | | 2019 | | +---------+--------+ + Encounter Details +--------+ + + + + | Date | Type | Department | Care Team | Description | +--------+ + + + + | 06/01/ | Telephone | [facility] | Emily Crane | Results | | 2019 | | PLASTIC SURGERY AND | [address] | | | | | DERMATOLOGY [address] | [address] | | | | | [address] | [place] [address] | | | | | [place], [place] | [phone] | | | | | [address] | | | | | | [phone] | | | +--------+ + + + [...] encounter Miscellaneous Notes Telephone Encounter - Nandini Bernardo, Basting Machine Operator - 06/02/2019 11:36 [address] PSTSee encoun ter from 05/28/19 11:3 7 AM PSTTelephone Encounter - Gaye Santos - 06/01/2019 2:16 PM PSTPt returning call for r esults documented in this enc ounter Plan of Treatment Not on filedocumented as [...]
[~2020-02-28 15:11] MED LIST changes: +BENADRYL ALLERG25 MG PO
[2020-02-28] MEDS ORDERED: ZYRTEC10 MG PO (15:30)
[2020-02-28] MEDS ORDERED: NORCO 7.5-3251 EACH PO (17:05)
[2020-02-28] MEDS ORDERED: ONDANSETRON ODT8 MG PO (17:05)
== END 2020-02-28 17:18 | disposition home or self-care (01) ==
LOC: ED 15:11
DX: N93.8 Other specified abnormal uterine and vaginal bleeding (principal); D50.9 Iron deficiency anemia, unspecified; J45.909 Unspecified asthma, uncomplicated; F41.9 Anxiety disorder, unspecified; I10 Essential (primary) hypertension; Z87.891 Personal history of nicotine dependence; Z88.1 Allergy status to other antibiotic agents; Z79.899 Other long term (current) drug therapy
CPT/HCPCS: 74177; 80053; 81001; 83690; 84703; 85025; 96374; 96375; 96376; 99284-25; A9270; J1170; J1885; J2405; J2550; J7030; Q9967

== ENCOUNTER 2020-08-25 17:17 | Emergency (ER) | payer OTHER ==
[~2020-08-25 17:17] MED LIST changes: +NORCO 7.5-3251 EACH PO; +ONDANSETRON ODT8 MG PO; +ZYRTEC10 MG PO
[2020-08-25] MEDS ORDERED: ONDANSETRON ODT8 MG PO (20:38)
== END 2020-08-25 20:59 | disposition home or self-care (01) ==
LOC: ED 17:17
DX: R10.13 Epigastric pain (principal); R11.2 Nausea with vomiting, unspecified; Z20.822 Contact with and (suspected) exposure to COVID-19; F41.9 Anxiety disorder, unspecified; I10 Essential (primary) hypertension; J45.909 Unspecified asthma, uncomplicated; Z87.891 Personal history of nicotine dependence; Z88.0 Allergy status to penicillin; Z79.899 Other long term (current) drug therapy
CPT/HCPCS: 80053; 81001; 83690; 83735; 84703; 85025; 96374; 96375; 99284-25; C9803; J1885; J2405; J2550; J7030; U0003

== ENCOUNTER 2021-02-04 07:55 | Emergency (ER) | payer OTHER ==
[~2021-02-04] VITALS: Ht 172.7 cm; Wt 122.9 kg
== END 2021-02-04 09:12 | disposition home or self-care (01) ==
LOC: ED 07:55
DX: S63.502A Unspecified sprain of left wrist, initial encounter (principal); S00.83XA Contusion of other part of head, initial encounter; S20.212A Contusion of left front wall of thorax, initial encounter; Y04.8XXA Assault by other bodily force, initial encounter; I10 Essential (primary) hypertension; J45.909 Unspecified asthma, uncomplicated; Z87.891 Personal history of nicotine dependence; Z88.0 Allergy status to penicillin; Z79.899 Other long term (current) drug therapy
CPT/HCPCS: 73110; 99284-25

== ENCOUNTER 2021-05-28 23:54 | Emergency (ER) | payer OTHER ==
[~2021-05-28] VITALS: Ht 172.7 cm; Wt 110.0 kg
== END 2021-05-29 01:59 | disposition home or self-care (01) ==
LOC: ED 23:54
DX: S01.01XA Laceration without foreign body of scalp, initial encounter (principal); S20.212A Contusion of left front wall of thorax, initial encounter; S50.12XA Contusion of left forearm, initial encounter; Y04.8XXA Assault by other bodily force, initial encounter; J45.909 Unspecified asthma, uncomplicated; I10 Essential (primary) hypertension; Z87.891 Personal history of nicotine dependence; Z88.0 Allergy status to penicillin
CPT/HCPCS: 70450; 71046; 72125; 73090; 99284-25

== ENCOUNTER 2021-12-27 10:09 | Emergency (ER) | payer OTHER ==
[~2021-12-27] VITALS: Ht 172.7 cm; Wt 101.6 kg
[2021-12-27] MEDS ORDERED: PREDNISONE20 MG PO (15:04)
== END 2021-12-27 15:21 | disposition home or self-care (01) ==
LOC: ED 10:09
DX: R21 Rash and other nonspecific skin eruption (principal); J45.909 Unspecified asthma, uncomplicated; I10 Essential (primary) hypertension; Z87.891 Personal history of nicotine dependence; Z88.0 Allergy status to penicillin
CPT/HCPCS: 99282; J7512

== ENCOUNTER 2022-01-03 15:32 | Emergency (ER) | payer OTHER ==
[~2022-01-03] VITALS: Ht 172.7 cm; Wt 118.0 kg
[~2022-01-03 15:32] MED LIST changes: +PREDNISONE20 MG PO
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
--- NOTE | 2022-01-03 20:14 | EKG ---
[facility] [address] [place], [place] [address] Signed Normal sinus rhythm Normal ECG No previous ECGs available Confirmed by DEVENDRA RAYGOZA MD ([id number]) on 01/03/2022 8:14:52 PM Electronically Signed By: DEVENDRA RAYGOZA MD 01/03/222013 PATIENT NAME: TAN DAVILA Electrocardiogram DATE OF : 80 PHYSICIAN: DEVENDRA RAYGOZA MD REPORT #: [id number] REPORT IS CONFIDENTIAL AND NOT TO BE RELEASED WITHOUT AUTHORIZATION
== END 2022-01-04 | disposition home or self-care (01) ==
LOC: ED 15:32
DX: F10.129 Alcohol abuse with intoxication, unspecified (principal); R45.1 Restlessness and agitation; Y90.8 Blood alcohol level of 240 mg/100 ml or more; J45.909 Unspecified asthma, uncomplicated; I10 Essential (primary) hypertension; Z87.891 Personal history of nicotine dependence; Z88.0 Allergy status to penicillin
CPT/HCPCS: 36415; 51701; 71045; 80053; 81001; 83605; 84703; 85025; 85060; 93005; 93010; 99285-25; A9270; G0480; J2060; J7030

== ENCOUNTER 2022-05-19 20:20 | Emergency (ER) | payer OTHER ==
[~2022-05-19] VITALS: Ht 172.7 cm; Wt 99.0 kg
[2022-05-19] MEDS ORDERED: DOXYCYCLINE HY100 MG PO (21:45)
[2022-05-19] MEDS ORDERED: FEOSOL325 MG PO (21:45)
== END 2022-05-19 22:01 | disposition home or self-care (01) ==
LOC: ED 20:20
DX: M79.10 Myalgia, unspecified site (principal); F15.10 Other stimulant abuse, uncomplicated; D50.9 Iron deficiency anemia, unspecified; L98.9 Disorder of the skin and subcutaneous tissue, unspecified; Z20.822 Contact with and (suspected) exposure to COVID-19; J45.909 Unspecified asthma, uncomplicated; I10 Essential (primary) hypertension; Z87.891 Personal history of nicotine dependence; Z88.0 Allergy status to penicillin
CPT/HCPCS: 36415; 80053; 81001; 84703; 85025; 85060; 87491; 87502; 99283; C9803; U0003

== ENCOUNTER 2022-07-20 19:54 | Emergency (ER) | payer OTHER ==
[~2022-07-20] VITALS: Ht 172.7 cm; Wt 99.8 kg
[~2022-07-20 19:54] MED LIST changes: +DOXYCYCLINE HY100 MG PO; +FEOSOL325 MG PO
[2022-07-21] MEDS ORDERED: CEFPODOXIME PR200 MG PO (06:42)
[2022-07-21] MEDS ORDERED: ZITHROMAX250 MG PO (06:42)
--- NOTE | 2022-07-22 18:29 | EKG ---
[facility] [address] [facility] [place], [place] [address] Signed Sinus tachycardia Otherwise normal ECG When compared with ECG of 03-JAN-2022 15:50, No significant change was found Confirmed by TIKA BOUCHER MD ([id number]) on 07/22/2022 6:29:21 PM Electronically Signed By: TIKA BOUCHER MD 07/22/22 1829 PATIENT NAME: TAN DAVILA Electrocardiogram DATE OF : 80 PHYSICIAN: TIKA BOUCHER MD REPORT #: [id number] REPORT IS CONFIDENTIAL AND NOT TO BE RELEASED WITHOUT AUTHORIZATION
== END 2022-07-21 08:45 | disposition home or self-care (01) ==
LOC: ED 19:54
DX: J18.9 Pneumonia, unspecified organism (principal); F10.129 Alcohol abuse with intoxication, unspecified; F15.90 Other stimulant use, unspecified, uncomplicated; J45.909 Unspecified asthma, uncomplicated; I10 Essential (primary) hypertension; Z87.891 Personal history of nicotine dependence; Z88.0 Allergy status to penicillin; Z20.822 Contact with and (suspected) exposure to COVID-19
CPT/HCPCS: 36415; 51701; 71045; 73560; 80053; 81001; 83605; 84443; 84703; 85025; 87502; 93005; 93010; 99285-25; G0480; J0456; J0696; J1790; J1885; J2060; J3411; J7030; J7121; U0003

== ENCOUNTER 2025-03-18 05:52 | Day surgery (SDC) | payer OTHER ==
[~2025-03-18] VITALS: Ht 172.7 cm; Wt 118.0 kg
[~2025-03-18 05:52] MED LIST changes: +CEFPODOXIME PR200 MG PO; +FEROSUL325 MG PO; +IBUPROFEN IB100 MG PO; +LACTATED RINGER'S 1,000 ML IV SCH; +TYLENOL325 MG PO; +ZITHROMAX250 MG PO
[2025-03-18 06:25] VITALS: BP 144/83
[2025-03-18] MEDS ORDERED: CALCIUM 600 MG1 EAC7 PO (06:36)
[2025-03-18] MEDS ORDERED: CELECOXIB100 MG PO (06:36)
[2025-03-18] MEDS ORDERED: BENADRYL25 MG PO (06:37)
[2025-03-18 06:47] LABS: GLOMERULAR FILTRATION RATE,EST 102.0 mL/min (>60); UREA NITROGEN 16.0 mg/dL (7-18)
[2025-03-18] MEDS ORDERED: MIDAZOLAM HCL 2 MG/2 ML VIAL ONE (06:57)
[2025-03-18] MEDS ORDERED: DEXAMETHASONE SOD PHOS 4 MG/ML VIAL ONE (06:57)
[2025-03-18] MEDS ORDERED: LIDOCAINE HCL 2% 5 ML SDV ONE (06:57)
[2025-03-18] MEDS ORDERED: fentaNYL citrate 100 MCG/2 ML VIAL ONE (06:57)
[2025-03-18] MEDS ORDERED: KETOROLAC TROMETHAMINE 30 MG/ML VIAL ONE ×2 (06:59→08:04)
[2025-03-18] MEDS ORDERED: LIDOCAINE HCL 1% 5 ML SDV INJ ONE (07:00)
[2025-03-18] MEDS ORDERED: IBLOOD GLUCOSE TEST STRIP 1 EA TEST VI PRN (07:00)
[2025-03-18] MEDS ORDERED: CEFAZOLIN SODIUM 2 GM/20 ML SYR IV SCH (07:00)
[2025-03-18] MEDS ORDERED: HYDROCODONE/ACETA 5/325 TAB PO PRN (07:30)
[2025-03-18] MEDS ORDERED: HYDROCODON-ACE1 EA10 PO (07:45)
[2025-03-18] MEDS ORDERED: fentaNYL citrate 50 MCG/ML SDV ONE (08:04)
--- NOTE | 2025-03-18 08:05 | NUR ---
03/18/25 0805 Tierra Morgan 0748- PT PRESENTS TO PACU, SEMI VELASQUEZ POSITION, NON REACTIVE TO STIMULUS. BREATHING EVEN AND NON LABORED ON ROOM AIR WITH OPA IN PLACE. LR INFUSING TO RH IV. ABD SOFT, NON DISTENDED. DRESSING TO LEFT KNEE, CMS INTACT. ALL MONITORS IN PLACE. ICE TO LEFT KNEE.
[2025-03-18] MEDS ORDERED: NALOXONE HCL 0.4 MG SYR IV PRN (08:15)
[2025-03-18] MEDS ORDERED: MEPERIDINE HCL 25 MG/1 ML VIAL IV PRN (08:15)
[2025-03-18] MEDS ORDERED: fentaNYL citrate 50 MCG/ML SDV IV PRN (08:15)
[2025-03-18] MEDS ORDERED: KETOROLAC TROMETHAMINE 30 MG/ML VIAL IV ONE (08:15)
[2025-03-18] MEDS ORDERED: HYDROmorphone HCL 1 MG/ML SYR IV PRN (08:15)
[2025-03-18] MEDS ORDERED: ACETAMINOPHEN 1,000 MG/100 ML VIAL IV PRN (08:45)
[2025-03-18 08:56] VITALS: BP 141/90
[2025-03-18] MEDS ORDERED: DICLOFENAC SOD 75 MG TABEC PO SCH (09:00)
--- NOTE | 2025-03-18 09:07 | NUR ---
0873 PT ARRIVED TO DAY SURGERY VIA STREACHER FROM PACU. PT BREATHING EQUAL AND UNLABORED. REPORT TAKEN FROM BRITTNI Alvarez RN. PT REPORTS TOLERABLE /. PT DROWSEY BUT AWAKES TO VERBAL STIMULI. PT HAS ICE ON SURGICAL EXTREMITY. PT REPORTS NO NAUSEA AT THIS TIME. PT RESTING IN BED WITH EYES CLOSED. DISCUSSED GETTING ORAL WATER AND SNACKS ON BOARD AND THEN A PAIN PILL FOR LONGER LASTING RELEIF. PT UNDERSTANDING. PUDDING AND WATER AT PT BEDSIDE. PT HAS CALL LIGHT WITHIN REACH.
[2025-03-18 09:57] VITALS: BP 146/88
--- NOTE | 2025-03-18 10:01 | NUR ---
0955 HOURLY ROUNDIND DONE WITH PT. PT REPORTS 1/10 PAIN WHEN NOT MOVING LEG. PT RESTING, TACTICLE STIMULI USED TO WAKE PT. PT REPORTS NO NAUSEA AT THIS TIME. PT ABLE TO TOLERATE PO PUDDING AND WATER. PT HAS CALL LIGHT WITHIN REACH.
--- NOTE | 2025-03-18 11:03 | NUR ---
1050 HOURLY ROUNDING DONE WITH PT. PT REQUIRES TACTILE STIMULI TO WAKE. PT REPORTS 1/10 PAIN WHEN PT IS NOT MOVING LEG. PT REPORTS NO NAUSEA AT THIS TIME. ONCE AWAKE PT ANSWERS QUESTIONS. PT FALLS BACK ASLEEP QUICKLY AFTER SPEAKING WITH HER. PT ENCOURAGED TO DRINK WATER. PT WILL USE CALL LIGHT IF PAIN INCREASES OR IF PT FEELS URGE TO URINATE. PT HAS CALL LIGHT WITHIN REACH. 1107 PT SUPPORT PERSON IN ROOM WITH PT. LIGHTS ON.
[2025-03-18 12:04] VITALS: BP 113/74
--- NOTE | 2025-03-18 12:10 | NUR ---
1200 HOURLY ROUNDING DONE WITH. PT WAKES TO VERBAL STIMULI. PT VITALS TAKEN. IV ASSESSED. PT REPORTS TOLABLE 4/10 PAIN. PT REPORTS NO URGE TO VOID YET. PT HAS ONLY DRANK ONE PATIENT CUP OF WATER. ENCOURAGED PT TO DRINK WATER, AND MADE A PLAN TO AMBULATE TO BATHRROM IN HALF HOUR IN ATTEMPT TO URINATE. PT UNDERSTANDING. PT HAS NO NAUSEA AT THIS TIME. PT HAS WATER AT BEDSIDE AND CALL LIGHT WITHIN REACH.
--- NOTE | 2025-03-18 12:39 | NUR ---
1235 PT ABLE TO AMBUALTE TO BATHROOM AND VOID 350 MLS OF CLEAR YELLOW URINE. PT ABLE TO AMBULATE BACK TO ROOM. PT GETTING DRESSED. PT HAS MET CRITERIA TO GO HOME, BUT PT RIDE DOES NOT GET HERE UNTIL 1430 THIS AFTERNOON. PT HAS CALL LIGHT WITHIN REACH.
[2025-03-18 12:54] VITALS: BP 141/82
--- NOTE | 2025-03-18 13:55 | NUR ---
1320 DISCHARGE INFORMATION GONE OVER WITH PT, NO QUESTIONS AT THIS TIME. PT HAS DISCHARE INFOMATION AND PRESCRIPTIONS IN HAND. PT IS DRESSED. PT JUST AWAITING RIDE HOME PT HAS MET DISCHARGE CRITERIA. PT REPORTING A TOLERABLE 4/10 PAIN IN SURGICAL KNEE. PT RESTING IN BED WITH CALL LIGHT WITHIN REACH.
[2025-03-18 14:43] VITALS: BP 124/79
--- NOTE | 2025-03-18 15:30 | NUR ---
1457 PT DISCHARGED FROM DAY SURGERY VIA WHEELCHAIR TO THE FRONT OF THE HOSPITAL. PT AMBULATED FROM WHEELCHAIR TO PT'S MOTHERS CAR. PT HAS DISHCARGE INFORMATION IN HER BAG, ALONG WITH PER PRESCRIPTION. PT HAS NO QUESTIONS AT THIS TIME.
[2025-03-18] MEDS ORDERED: SEVOFLURANE 250 ML BTL INH ONE (16:54)
--- NOTE | 2025-03-19 10:34 | OR ---
[facility] [address] [place], [place] [address] Signed DATE OF OPERATION: 03/18/2025 SURGEON: Saw Jones MD PREOPERATIVE DIAGNOSIS: Medial and lateral meniscus tears, left knee. POSTOPERATIVE DIAGNOSIS: Medial and lateral meniscus tears, left knee. PROCEDURE PERFORMED: Left knee arthroscopy with partial medial and lateral meniscectomies. AUTOMOBILE RACER: Alejandrina Horvath PA-C. Alejandrina was present and critical for all portions of procedure. ANESTHESIA: General. BLOOD LOSS: Minimal. BRIEF HISTORY: Bertha is a 44-year-old female with progressive pain and mechanical instability in her knee. Risks and benefits of operative treatment were discussed with her and she elected to proceed. Once consent was obtained, she was taken to the operating room. After adequate anesthesia, she was placed on the OR table. The right leg was flexed, abducted, and externally rotated on a well-padded leg lozano. The left foot was placed in well-padded leg lozano and prepped and draped in a standard sterile fashion. The portal sites were injected with 0.25% Marcaine with epinephrine. A standard inferolateral and superolateral portals were made and the scope was introduced into the knee. ARTHROSCOPIC FINDINGS: She had moderate synovitis throughout the knee. 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 Medial and lateral gutter showed mild osteophytosis. ACL and PCL were intact. The lateral compartment showed a large complex meniscus tear with grade 4 chondromalacia to the tibia, grade 3 and 4 to the femur. Similarly, the medial compartment showed a primarily horizontal tear to the posterior and posteromedial Electronically Signed By: SAW JONES MD 03/19/25 1034 PATIENT NAME: BERTHA DAVILA OPERATIVE REPORT DATE OF : 80 REPORT #: [id number] PHYSICIAN: SAW JONES MD PCP: [facility] REPORT IS CONFIDENTIAL AND NOT TO BE RELEASED WITHOUT AUTHORIZATION [facility] [address] [place], [place] [address] Signed portions of the meniscus. There was grade 2 chondromalacia to the medial compartment. DESCRIPTION OF OPERATION: Standard inferomedial portal was made after localization using a spinal needle. Straight and curved biters were used to trim both meniscus tears back to stable rims. These were then feathered out using the shaver and all debris was evacuated. Chondral flaps on the lateral femoral condyle were debrided as well. The scope was then withdrawn. Portals were closed with 3-0 nylon and the knee injected with 60 mg of Toradol. The wounds were dressed with Adaptic, ABD, and Elias wrap. She tolerated the procedure well. All sponge, needle, and instrument counts were correct. Saw Jones MD BA/LELOL /[id number] Copies: ~ Electronically Signed By: SAW JONES MD 03/19/25 1034 PATIENT NAME: BERTHA DAVILA OPERATIVE REPORT DATE OF : 80 REPORT #: [id number] PHYSICIAN: SAW JONES MD [facility]: [facility] REPORT IS CONFIDENTIAL AND NOT TO BE RELEASED WITHOUT AUTHORIZATION
== END 2025-03-18 14:57 | disposition home or self-care (01) ==
LOC: DS 05:52
PROVIDERS: ATTEND Specialist
PROC: 0SBD4ZZ Excision of Left Knee Joint, Percutaneous Endoscopic Approach (ICD-10-PCS; 2025-03-18)
PROC: 0SBD4ZZ Excision of Left Knee Joint, Percutaneous Endoscopic Approach (ICD-10-PCS; principal; 2025-03-18 08:30)
DX: S83.242A Other tear of medial meniscus, current injury, left knee, initial encounter (principal); S83.282A Other tear of lateral meniscus, current injury, left knee, initial encounter; X58.XXXA Exposure to other specified factors, initial encounter; M65.98 Unspecified synovitis and tenosynovitis, other site; M94.262 Chondromalacia, left knee; M25.762 Osteophyte, left knee; E03.9 Hypothyroidism, unspecified; F10.20 Alcohol dependence, uncomplicated; F12.20 Cannabis dependence, uncomplicated; F17.200 Nicotine dependence, unspecified, uncomplicated; D50.9 Iron deficiency anemia, unspecified; Z79.899 Other long term (current) drug therapy; Z90.49 Acquired absence of other specified parts of digestive tract
CPT/HCPCS: 01400; 36415; 80048; 84703; J0131; J0690; J1100; J1171; J1885; J2003; J2250; J2405; J2704; J3010

== ENCOUNTER 2025-04-07 06:14 | Emergency (ER) | payer OTHER ==
[~2025-04-07] VITALS: Ht 172.7 cm; Wt 118.0 kg
[~2025-04-07 06:14] MED LIST changes: +BENADRYL25 MG PO; +CALCIUM 600 MG1 EAC7 PO; +CELECOXIB100 MG PO; +HYDROCODON-ACE1 EA10 PO; -LACTATED RINGER'S 1,000 ML IV SCH
[2025-04-07] MEDS ORDERED: LACTATED RINGER'S 1,000 ML IV ONE (06:30)
[2025-04-07] MEDS ORDERED: diazePAM 10 MG/2 ML SYR IV ONE (06:30)
[2025-04-07] MEDS ORDERED: HYDROCODON-ACE1 EA10 PO (06:32)
[2025-04-07 06:36] LABS: BASOPHILS 0.5 % (0.1-1.2); EOSINOPHILS 1.8 % (0.7-5.8); LYMPHOCYTES 18.0 % (19.3-51.7); MCH 24.3 PG (25.6-32.2); MCHC 31.3 g/dL (32.2-35.5); MCV 77.7 fL (79.4-94.8); MONOCYTES 10.4 % (4.7-12.5); NEUTROPHILS 68.9 % (34.0-71.1); RBC 4.48 M/uL (3.93-5.22)
[2025-04-07 06:51] LABS: ALT (SGPT) 21.0 U/L (14-59); AST (SGOT) 33.0 U/L (15-37); GLOMERULAR FILTRATION RATE,EST 93.0 mL/min (>60); PROTEIN, TOTAL 8.2 g/dL (6.4-8.2); UREA NITROGEN 17.0 mg/dL (7-18)
[2025-04-07] MEDS ORDERED: CYCLOBENZAPRINE10 MG PO (07:55)
[2025-04-07 08:09] VITALS: BP 111/67
== END 2025-04-07 08:10 | disposition home or self-care (01) ==
LOC: ED 06:14
PROVIDERS: Family Medicine
DX: R25.2 Cramp and spasm (principal); I10 Essential (primary) hypertension; J45.909 Unspecified asthma, uncomplicated; Z87.891 Personal history of nicotine dependence; Z98.890 Other specified postprocedural states
CPT/HCPCS: 36415; 80053; 83735; 85025; 96374; 99283-25; J3360; J7121